=== PATIENT | male | born 2005 | race African-American/Black ===

== ENCOUNTER 2024-02-20 12:35 | Emergency (ER) | payer SELFPAY ==
[2024-02-20] VITALS (12 sets, daily range): BP systolic 89–118; BP diastolic 57–74; PULSE 92–114; RESP 12–20; TEMP 37.8; O2SAT 96–100
--- NOTE | ~2024-02-20 | XR_ITS ---
EXAMINATION: XR chest 1V portable 02/20/2024 13:28 INDICATION: Fever and chills PROCEDURE: AP portable chest COMPARISON: No prior studies for comparison. FINDINGS: The lungs are clear. The cardiomediastinal silhouette is within normal limits. There are no pleural effusions. There is no pneumothorax suspected. IMPRESSION: 1: NO ACUTE CARDIOPULMONARY DISEASE. Reviewed, dictated and finalized at location B.
[2024-02-20] MEDS: SODIUM CHLORIDE 0.9% IV 3,000 ML 999 ML IV CONT (13:12)
[2024-02-20] MEDS: AMOXICILLIN 500 MG CAPSULE PO (13:17)
[2024-02-20] MEDS: ACETAMINOPHEN 500 MG TABLET PO (13:17)
[2024-02-20] MEDS: KETOROLAC 15 MG/ML VIAL (*BKC) IV PUSH (13:18)
[2024-02-20 13:28] LABS: Basophils Percent Auto 0.2 % (0.2-1.2); Hematocrit 39.3 % (42.0-52.0); Hemoglobin 13.8 g/dL (14.0-18.0); Immature Granulocyte Absolute 0.03 K/mm3 (0.00-0.031); Immature Granulocyte Percent A 0.3 % (0-0.5); Lymphocytes Absolute Auto 0.78 K/mm3 (0.9-3.2); Lymphocytes Percent Auto 6.6 % (18.3-44.2); Mean Corpuscular HGB Conc 35.1 g/dl (32-36); Mean Corpuscular Hemoglobin 33.2 pg (26-34); Mean Corpuscular Volume 94.5 fl (80-100); Monocytes Absolute Auto 0.8 K/mm3 (0.1-0.6); Monocytes Percent Auto 6.6 % (2.6-8.5); Neutrophils Absolute Auto 10.2 K/mm3 (1.3-6.7); Neutrophils Percent Auto 86.3 % (45.5-73.1); Platelet Count Result 201 k/mm3 (150-375); Red Blood Count 4.16 M/mm3 (4.6-6.20); Red Cell Distribution Width 11.9 % (11.5-14.5); White Blood Count 11.8 K/mm3 (4.5-10.0)
--- NOTE | 2024-02-20 13:34 | ED.GENADULT ---
HPI - General Adult General Chief complaint: Abdominal Pain Stated complaint: sick for 4 days Time Seen by Provider: 02/20/24 12:55 History of Present Illness HPI narrative: This is a 19-year-old male presenting ED with chief complaint flu-like symptoms. His patient is having fevers, nausea, vomiting,sore throat and total body pain for 4 days. He has had decreased oral intake. He has intermittently been taking Tylenol. He denies sick contacts at home. Related Data Allergies Allergy/AdvReac Type Severity Reaction Status Date / Time No Known Allergies Allergy Verified 02/20/24 12:43 Exam Narrative: APPEARANCE: Appears uncomfortable Head: Exudates/erythematous tonsils EYES: EOMI, NOSE: Atraumatic NECK: Trachea midline RESPIRATORY: No increased rate of breathing CTAB CARDIOVASCULAR: mildly tachycardic no peripheral edema ABDOMINAL: Non-distended soft nontender MUSCULOSKELETAl: No obvious deformities NEURO: Alert. Moving 4/4 extremities SKIN:: Warm, dry. Normal color PSYCHIATRIC: Normal affect Course Vital Signs Vital signs: Vital Signs Temperature 100.0 F H 02/20/24 12:38 Pulse Rate 110 H 02/20/24 12:38 Respiratory Rate 16 02/20/24 12:38 Blood Pressure 118/74 02/20/24 12:38 Pulse Oximetry 100 02/20/24 12:38 Oxygen Delivery Room Air 02/20/24 12:38 Temperature 100.0 F H 02/20/24 12:38 Pulse Rate 92 02/20/24 14:30 Respiratory Rate 19 02/20/24 14:30 Blood Pressure 89/57 L 02/20/24 14:30 Pulse Oximetry 99 02/20/24 14:30 Oxygen Delivery Room Air 02/20/24 12:38 Medical Decision Making [facility] Narrative Medical decision making narrative: -Course: 19-year-old male presenting with 4 days of flu-like symptoms. Patient is given a dose of amoxicillin for suspected strep although his workup then came back positive for mono. No role for continued abx. Rest of the workup unremarkable. chest x-ray negative. Urine negative. Patient received fluid rehydration and NSAIDs with some improvement. Patient educated on symptoms and told to avoid contact sports. Patient discharged with primary care follow-up. -DDX includes but is not limited to: viral syndrome, strep throat, pneumonia UTI mono -Independent interpretation of studies: Labs reviewed. [place] positive. Chest Xr negative -Interventions: 3 L normal saline, amoxicillin, Toradol, Tylenol -Shared decision making / Disposition: Discharged. -RX Motrin, Tylenol Vital Signs Vital Signs: Vital Signs Temperature 100.0 F H 02/20/24 12:38 Pulse Rate 110 H 02/20/24 12:38 Respiratory Rate 16 02/20/24 12:38 Blood Pressure 118/74 02/20/24 12:38 Pulse Oximetry 100 02/20/24 12:38 Oxygen Delivery Room Air 02/20/24 12:38 Temperature 100.0 F H 02/20/24 12:38 Pulse Rate 92 02/20/24 14:30 Respiratory Rate 19 02/20/24 14:30 Blood Pressure 89/57 L 02/20/24 14:30 Pulse Oximetry 99 02/20/24 14:30 Oxygen Delivery Room Air 02/20/24 12:38 Lab Data 02/20/24 13:16 02/20/24 13:16 Labs: Lab Results 02/20/24 02/20/24 Range/Units 13:16 14:02 WBC 11.8 H (4.5-10.0) K/mm3 RBC 4.16 L (4.6-6.20) M/mm3 Hgb 13.8 L (14.0-18.0) g/dL Hct 39.3 L (42.0-52.0) % MCV 94.5 (80-100) fl MCH 33.2 (26-34) pg MCHC 35.1 (32-36) g/dl RDW 11.9 (11.5-14.5) % Plt Count 201 (150-375) k/mm3 MPV 10.0 (7.4-10.4) fl Immature Gran % (Auto) 0.3 (0-0.5) % Neut % (Auto) 86.3 H (45.5-73.1) % Lymph % (Auto) 6.6 L (18.3-44.2) % [place] % (Auto) 6.6 (2.6-8.5) % Eos % (Auto) 0.0 (0-4.4) % Baso % (Auto) 0.2 (0.2-1.2) % Lymph # (Auto) 0.78 L (0.9-3.2) K/mm3 [place] # (Auto) 0.8 H (0.1-0.6) K/mm3 Eos # (Auto) 0.0 (0-0.3) K/mm3 Baso # (Auto) 0.0 (0.0-0.1) K/mm3 Abs Immat Gran (auto) 0.03 (0.00-0.031) K/mm3 Absolute Neuts (auto) 10.2 H (1.3-6.7) K/mm3 Absolute Nucleated RBC 0.000 (0.0-0.012) K/mm3 Nucleated
[2024-02-20 13:39] LABS: Alanine Aminotransferase 23 U/L (6-50); Albumin Level 4.3 g/dL (3.5-5.1); Alkaline Phosphatase 76 U/L (38-126); Anion Gap 7 mmol/L (4-12); Aspartate Amino Transferase 30 U/L (17-59); Bilirubin,Total 0.5 mg/dL (0.2-1.3); Blood Urea Nitrogen 15 mg/dL (9-20); Calcium 9.3 mg/dL (8.4-10.2); Carbon Dioxide 26 mmol/L (22-30); Chloride 104 mmol/L (98-107); Estimated CRCL calculation 73 ml/min; Estimated Glomerular Filt Rate > 60; Glucose 95 mg/dL (65-110); Lipase 84 U/L (23-300); Potassium 3.5 mmol/L (3.4-5.0); Sodium 137 mmol/L (137-145)
[2024-02-20 13:47] LABS: Monoscreen Positive (Negative); Negative Monotest Control Negative (Negative); Positive Monotest Control Positive (Positive)
[2024-02-20 13:52] LABS: Strep Group A RT-PCR NOT DETECTED (Negative)
[2024-02-20 14:04] LABS: Influenza A QL RT-PCR Negative (Negative); Influenza B QL RT-PCR Negative (Negative); RSV RNA, RT-PCR Negative (Negative); SARS-CoV-2 RNA PCR Negative (Negative)
[2024-02-20 14:15] LABS: Appearance Urine Clear (Clear); Bacteria Urine None Seen /hpf; Bilirubin Urine Negative (Negative); Blood Urine Negative (Negative); Color Urine Yellow (Yellow); Glucose Urine UA Negative (Negative); Ketones Urine Trace mg/dL (Negative); Leukocyte Esterase Ur Negative LEU/UL (Negative); Nitrate Urine Negative (Negative); Non Pathogenic Casts 0-2; Protein Urine 1+ mg/dL (Negative); RBC Urine 0-2 /hpf (0-2); Specific Grav Ur 1.015 (1.001-1.035); Squamous Epithelial Cell Urine None Seen /hpf (Few); WBC Urine 0-5 /hpf (0-3); pH Urine 6.5 (5.0-9.0)
[2024-02-20 14:23] LABS: Add Urine Microscopic? YES
--- NOTE | 2024-02-20 15:32 | PC.NURSE ---
Pt refused the third liter of fluids. Pt had 2L infused out of 3L.
== END 2024-02-20 15:33 | disposition home or self-care (01) ==
PROVIDERS: Emergency Provider Emergency Medicine
DX: B27.90 Infectious mononucleosis, unspecified without complication (principal); Z20.822 Contact with and (suspected) exposure to COVID-19
CPT/HCPCS: 36415; 71045; 80053; 81001; 83690; 85025; 86308; 87637; 87651; 96361; 96374; 99284; A9270; J1885; J7030

== ENCOUNTER 2024-02-22 16:54 | Emergency (ER) | payer SELFPAY ==
--- NOTE | ~2024-02-22 | XR_ITS ---
EXAMINATION: XR chest 2V Exam Date/Time: 02/22/2024 18:00 CDT HISTORY: fever, body aches, positive for mono 4 days ago Comparison: 02/20/2024. RESULT: Lines, tubes, and devices: None. Lungs and pleura: Clear. Cardiomediastinal silhouette: Stable. Other: No acute osseous or upper abdominal finding. IMPRESSION: No acute cardiopulmonary process. Reviewed, dictated and finalized at location K.
--- NOTE | ~2024-02-22 | CT_ITS ---
EXAMINATION: CT abdomen pelvis w con DATE: 02/22/2024 19:10 INDICATION: mono, LUQ TECHNIQUE: Computed tomography (CT) of the abdomen and pelvis was performed with 100 mL Omnipaque-350 intravenous contrast. Automated exposure control and iterative reconstruction technique were employe d. The dose-length product was 191.83 mGy-cm. COMPARISON: None. FINDINGS: Evaluation limited by the paucity of abdominopelvic fat. Lower thorax: Unremarkable Liver: Subcentimeter right lobe hypodensity, likely cyst or hemangioma. Biliary/Gallbladder: Gallbladder is normal. No bile duct dilation. Pancreas: No mass or duct dilation. Spleen: Normal. Adrenals:No mass. Kidneys: Delayed nephrographic/early excretory phase of contrast. Suggestion of multiple bilateral ca lyceal filling defects, with possible extension of contrast beyond the calyces. Patchy bilateral enha ncement. No hydronephrosis. No suspicious mass. GI tract: No small or large bowel dilation. Normal appendix. Mesentery/Peritoneum: No ascites, mass, or free air. Retroperitoneum: No mass. Pelvis: Pelvic organs are within normal limits. Trace free pelvic fluid. Soft Tissues: Soft tissues and body wall unremarkable. Bones: No acute osseous finding. 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 Correlate with urinalysis. Small volume free pelvic fluid. Normal-appearing spleen. Reviewed, dictated and finalized at location K. 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 Correlate with urinalysis. Small volume free pelvic fluid. Normal-appearing spleen.
[2024-02-22 16:56] VITALS: BP 111/55; PULSE 102; RESP 20; TEMP 38.9; O2SAT 99
--- NOTE | 2024-02-22 17:54 | ED.GENADULT ---
HPI - General Adult General Chief complaint: Unspecified Stated complaint: jyotig w/ mono this week, c/o pain Time Seen by Provider: 02/22/24 17:24 History of Present Illness HPI narrative: 19-year-old male with recent diagnosis on 02/20/2024 presents to emergency department for generalized weakness and body aches. Patient states is feeling ill. States he was feeling somewhat better yesterday so he went to work which pain his symptoms worse. States he has been taking Tylenol, his last dose was 0800. He is reporting a sore throat, headache, LUQ abdominal pain, body aches and back pain. Related Data Allergies Allergy/AdvReac Type Severity Reaction Status Date / Time No Known Allergies Allergy Verified 02/22/24 17:01 Review of Systems Review of Systems: CONSTITUTIONAL: Denies fever, chills, or sweats. EYES: Denies visual changes, redness, or discharge. ENT: Denies rhinorrhea, congestion, sore throat, or otalgia. CARDIOVASCULAR: Denies chest pain, palpitations, or edema. RESPIRATORY: Denies cough or dyspnea.See GASTROINTESTINAL: Denies abdominal pain, nausea, vomiting, or diarrhea. GENITOURINARY: Denies dysuria or hematuria. SKIN: Denies rash or itching. MUSCULOSKELETAL: Denies back pain, joint pain, or myalgia. NEUROLOGIC: Denies headache, numbness, or weakness. PSYCHIATRIC: Denies anxiety or depression. Exam Narrative: GENERAL: Well-appearing, well-nourished, and in no acute distress. HEAD: Normocephalic, atraumatic. EYES: PERRLA and EOMI. ENT: Nares clear, no rhinorrhea or epistaxis. Mucous membranes moist. Bilateral tonsillar hypertrophy with exudates. No uveal deviation. No trismus. Pt tolerating secretions. No airway compromise. NECK: Supple. No meningeal signs. Full range of motion of neck CHEST: Clear to auscultation. No respiratory distress. HEART: Regular rate and rhythm. No murmur heard. Normal peripheral pulses. ABDOMEN: Normal active bowel sounds. Abdomen soft with tenderness in the LUQ. No guarding, rebound or rigidity. EXTREMITIES: Normal range of motion. No edema. SKIN: Warm, dry, no rash. NEURO: No focal deficits. Alert and oriented x3 Course Vital Signs Vital signs: Vital Signs Temperature 102.1 F H 02/22/24 16:56 Pulse Rate 102 H 02/22/24 16:56 Respiratory Rate 20 02/22/24 16:56 Blood Pressure 111/55 L 02/22/24 16:56 Pulse Oximetry 99 02/22/24 16:56 Oxygen Delivery Room Air 02/22/24 16:56 Temperature 99.6 F 02/22/24 20:14 Pulse Rate 76 02/22/24 20:14 Respiratory Rate 16 02/22/24 20:14 Blood Pressure 116/70 02/22/24 20:14 Pulse Oximetry 99 02/22/24 20:14 Oxygen Delivery Room Air 02/22/24 16:56 Medical Decision Making MDM Narrative Medical decision making narrative: 19 y/o M presents to the ED with generalized body aches, weakness, abdominal pain after being dx with mono 2 days ago. Triage vitals significant for heart rate of 102 and fever 102.1. Exam is significant for the above. CBC with leukocytosis of 10.1 which is down trending from recent labs 2 days ago. Chemistries unremarkable. UA with 1+ ketone urea. Chest x-ray shows no acute cardiopulmonary abnormality. 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 Small volume free pelvic fluids. Normal appearing spleen. workup discussed with patient. He received 2 L of IV fluids, Tylenol and IV Toradol with improvement in symptoms. Vital signs have normalized. Fever resolved. Upon re-evaluation he appears much better. He is requesting food and tolerating p.o. intake. I suspect his symptoms are all secondary to mono he. I did discuss CT findings with the radiologist regarding the concern for renal papillary necrosis or pyelo. He says these findings may be secondary to artifact given UA is clean. Will have the patient follow-up with his PCP to check a UA in
[2024-02-22] MEDS: KETOROLAC 15 MG/ML VIAL (*BKC) IV PUSH (18:14)
[2024-02-22] MEDS: SODIUM CHLORIDE 0.9% IV 1,000 ML 999 ML IV CONT ×2 (18:14→19:59)
[2024-02-22] MEDS: ACETAMINOPHEN 500 MG TABLET 1000 MG PO (18:15)
[2024-02-22 18:22] LABS: Basophils Percent Auto 0.2 % (0.2-1.2); Hematocrit 39.6 % (42.0-52.0); Immature Granulocyte Absolute 0.02 K/mm3 (0.00-0.031); Immature Granulocyte Percent A 0.2 % (0-0.5); Lymphocytes Absolute Auto 0.95 K/mm3 (0.9-3.2); Lymphocytes Percent Auto 9.4 % (18.3-44.2); Mean Corpuscular HGB Conc 35.4 g/dl (32-36); Mean Corpuscular Hemoglobin 33.3 pg (26-34); Mean Corpuscular Volume 94.3 fl (80-100); Mean Platelet Volume 10.3 fl (7.4-10.4); Monocytes Absolute Auto 0.8 K/mm3 (0.1-0.6); Monocytes Percent Auto 7.7 % (2.6-8.5); Neutrophils Absolute Auto 8.3 K/mm3 (1.3-6.7); Neutrophils Percent Auto 82.5 % (45.5-73.1); Platelet Count Result 205 k/mm3 (150-375); Red Cell Distribution Width 11.6 % (11.5-14.5); White Blood Count 10.1 K/mm3 (4.5-10.0)
[2024-02-22 18:47] LABS: Alanine Aminotransferase 17 U/L (6-50); Albumin Level 4.3 g/dL (3.5-5.1); Alkaline Phosphatase 63 U/L (38-126); Anion Gap 5 mmol/L (4-12); Aspartate Amino Transferase 28 U/L (17-59); Bilirubin,Total 0.7 mg/dL (0.2-1.3); Blood Urea Nitrogen 12 mg/dL (9-20); Calcium 8.5 mg/dL (8.4-10.2); Carbon Dioxide 26 mmol/L (22-30); Chloride 103 mmol/L (98-107); Estimated CRCL calculation 90 ml/min; Estimated Glomerular Filt Rate > 60; Glucose 84 mg/dL (65-110); Potassium 3.6 mmol/L (3.4-5.0); Sodium 134 mmol/L (137-145)
--- NOTE | 2024-02-22 19:18 | PC.NURSE ---
Assumed care of pt from RISSA Merino and RISSA Vance. Pt resting in bed.
[2024-02-22 19:53] LABS: Appearance Urine Clear (Clear); Bacteria Urine None Seen /hpf; Bilirubin Urine Negative (Negative); Blood Urine Negative (Negative); Color Urine Yellow (Yellow); Glucose Urine UA Negative (Negative); Ketones Urine 1+ mg/dL (Negative); Leukocyte Esterase Ur Negative LEU/UL (Negative); Nitrate Urine Negative (Negative); Non Pathogenic Casts 0-2; Protein Urine Trace mg/dL (Negative); RBC Urine 0-2 /hpf (0-2); Squamous Epithelial Cell Urine None Seen /hpf (Few); WBC Urine 0-5 /hpf (0-3)
[2024-02-22 20:01] LABS: Add Urine Microscopic? YES; Specific Grav Ur 1.015 (1.001-1.035)
[2024-02-22 20:14] VITALS: BP 116/70; PULSE 76; RESP 16; TEMP 37.6; O2SAT 99
== END 2024-02-22 21:13 | disposition home or self-care (01) ==
PROVIDERS: Emergency Provider Physician Assistant
DX: B27.90 Infectious mononucleosis, unspecified without complication (principal)
CPT/HCPCS: 36415; 71046; 74177; 80053; 81001; 85025; 96361; 96374; 99284; A9270; J1885; J7030; Q9967